=== PATIENT | male | born 1990 | race Caucasian/White ===

== ENCOUNTER 2021-07-05 03:18 | Emergency (ER) | payer OTHER ==
[~2021-07-05] VITALS: Ht 175.3 cm; Wt 81.6 kg
[2021-07-05 03:25] VITALS: BP_SYST 116
--- NOTE | 2021-07-05 03:25 | NUR ---
Patient triaged and placed in waiting room. VSS and patient appears in no acute distress at this time., awaiting available bed, and MD notified of need for MSE.
--- NOTE | 2021-07-05 03:55 | NUR ---
CALL PT NAME IN THE WR.NO ANSWER.
--- NOTE | 2021-07-05 04:00 | NUR ---
CALL PT NAME IN THE WR.NO ANSWER.
--- NOTE | 2021-07-05 04:05 | NUR ---
CALL PT NAME IN THE WR.NO ANSWER.
== END 2021-07-05 04:05 | disposition left against medical advice (07) ==
LOC: SED 03:18
DX: R06.00 Dyspnea, unspecified (principal); Z53.21 Procedure and treatment not carried out due to patient leaving prior to being seen by health care provider